=== PATIENT | female | born 1945 | race Caucasian/White ===

== ENCOUNTER → 2020-12-03 | Outpatient (CLI) | payer MEDICARE ==
[2020-12-03 18:52] LABS: Basophils # (A) 0.03 X 10*3/uL (0.00-0.10); Basophils % (A) 0.5 %; Eosinophils # (A) 0.11 X 10*3/uL (0.04-0.35); Eosinophils % (A) 1.9 %; HCT 37.1 % (37.2-46.3); HGB 11.6 g/dL (12.0-15.0); Lymphocytes # (A) 0.93 X 10*3/uL (0.90-5.00); Lymphocytes % (A) 15.8 %; MCH 30.2 pg (27.0-32.0); MCHC 31.3 g/dL (32.0-37.0); MCV 96.6 fL (80.0-97.0); Mean Platelet Volume 10.1 fL (9.5-12.2); Monocytes # (A) 0.64 X 10*3/uL (0.20-1.00); Monocytes % (A) 10.9 %; Neutrophils # (A) 4.15 X 10*3/uL (1.80-7.70); Neutrophils % (A) 70.4 %; Platelet Count 260 X 10*3/uL (140-440); RBC 3.84 X 10*6/uL (4.10-5.20); RDW 17.1 % (11.5-14.5); WBC 5.89 X 10*3/uL (4.50-10.00)
[2020-12-04 03:23] LABS: Anion Gap 12.3 mmol/L (4.00-12.00); BUN/Creat Ratio 21.11 Ratio (12.00-20.00); Calcium 9.2 mg/dL (8.7-10.3); Carbon Dioxide 21.7 mmol/L (21.6-31.8); Non-African American GFR(CKD) 62.1 (60.0-200.0); Potassium 4.8 mmol/L (3.5-5.5)
[2020-12-04 04:45] LABS: INR 1.05 (0.90-1.11); Partial Thromboplastin Time 26.2 sec (23.5-31.0); Prothrombin Time 11.4 sec (9.9-11.9)
== END | disposition home or self-care (01) ==
LOC: LABWHC1 13:41
PROVIDERS: ATTEND Internal Medicine
DX: Z01.812 Encounter for preprocedural laboratory examination (principal)
CPT/HCPCS: 36415; 80048; 85025; 85610; 85730

== ENCOUNTER → 2021-12-07 | Outpatient (CLI) | payer MEDICARE ==
[2021-12-07 11:50] LABS: Partial Thromboplastin Time 23.5 sec (22.0-30.0); Prothrombin Time 11.2 sec (9.0-12.0)
[2021-12-07 14:55] LABS: African American GFR (CKD) 82.4 (60.0-200.0); Anion Gap 12.9 mmol/L (10.00-18.00); Blood Urea Nitrogen 18.4 mg/dL (9.0-27.0); Calcium 9.4 mg/dL (8.7-10.3); Carbon Dioxide 28.1 mmol/L (20.0-27.5); Non-African American GFR(CKD) 71.1 (60.0-200.0)
[2021-12-07 15:07] LABS: Basophils # (A) 0.03 X 10*3/uL (0.00-0.10); Basophils % (A) 0.4 %; Eosinophils # (A) 0.01 X 10*3/uL (0.04-0.35); Eosinophils % (A) 0.1 %; Immature Grans, Automated 0.4 %; Lymphocytes # (A) 1.31 X 10*3/uL (0.90-5.00); Lymphocytes % (A) 19.1 %; MCH 32.3 pg (27.0-32.0); MCHC 32.4 g/dL (32.0-37.0); MCV 99.7 fL (80.0-97.0); Mean Platelet Volume 10.1 fL (9.5-12.2); Monocytes # (A) 0.65 X 10*3/uL (0.20-1.00); Monocytes % (A) 9.5 %; NRBC Per 100 WBC 0 /100 WBCS (0.0-0.0); Neutrophils # (A) 4.84 X 10*3/uL (1.80-7.70); Neutrophils % (A) 70.5 %; Platelet Count 257 X 10*3/uL (140-440); RBC 3.41 X 10*6/uL (4.10-5.20); WBC 6.87 X 10*3/uL (4.50-10.00)
== END | disposition home or self-care (01) ==
LOC: LABWHC1 11:04
PROVIDERS: ATTEND Internal Medicine
DX: Z01.812 Encounter for preprocedural laboratory examination (principal)
CPT/HCPCS: 36415; 80048; 85025; 85610; 85730